=== PATIENT | female | born 1985 | race Caucasian/White ===

== ENCOUNTER → 2020-12-04 | Outpatient (CLI) | payer BC, OTHER ==
[~2020-12-04] MED LIST: AMITRIPTYLINE H10 MG PO; BUSPIRONE HCL30 MG PO; DOCUSATE SODIU250 MG PO; HYDROCODONE-AC1 EACH PO; IBUPROFEN600 MG PO; NORETHINDRONE0.35 MG PO
[2020-12-04 14:11] LABS: HEMOGLOBIN 13.2 gm/dl (12.3-15.3); RED BLOOD COUNT 4.26 M/UL (4.00-5.10); WHITE BLOOD COUNT 8.4 K/UL (4.5-11.0)
== END ==
LOC: OPSV2 13:16
PROVIDERS: Obstetrics & Gynecology
DX: Z01.812 Encounter for preprocedural laboratory examination (principal); N92.0 Excessive and frequent menstruation with regular cycle
CPT/HCPCS: 81001; 85025

== ENCOUNTER → 2020-12-06 | Day surgery (SDC) | payer BC, OTHER | END | disposition home or self-care (01) | LOC: OR 06:33 | DX: N80.2 Endometriosis of fallopian tube (principal); N93.9 Abnormal uterine and vaginal bleeding, unspecified; R10.2 Pelvic and perineal pain; K21.9 Gastro-esophageal reflux disease without esophagitis; M36.0 Dermato(poly)myositis in neoplastic disease; F41.9 Anxiety disorder, unspecified; F32.A Depression, unspecified; M06.9 Rheumatoid arthritis, unspecified; L40.50 Arthropathic psoriasis, unspecified; G43.909 Migraine, unspecified, not intractable, without status migrainosus; Z79.899 Other long term (current) drug therapy; Z88.0 Allergy status to penicillin; Z20.822 Contact with and (suspected) exposure to COVID-19; Z98.51 Tubal ligation status | CPT/HCPCS: C1769; J0690; J1100; J1170; J1885; J2250; J2405; J2704; J2710; J3010; J7120 ==